=== PATIENT | female | born 1955 | race African-American/Black ===

== ENCOUNTER 2019-02-01 02:44 | Emergency (ER) | payer OTHER ==
[~2019-02-01] VITALS: Ht 162.6 cm; Wt 46.0 kg
[2019-02-01] MEDS ORDERED: METHYLPREDNISOLONE SOD SUCC 125 MG/2 ML VIAL IV STA (05:20)
[2019-02-01] MEDS ORDERED: IPRATROPIUM BROMIDE (0.02%) 0.5MG/2.5ML NEB HHN STA (05:20)
[2019-02-01] MEDS ORDERED: ALBUTEROL (0.083%) 2.5MG/3ML NEB HHN STA (05:20)
[2019-02-01 07:48] VITALS: BP 134/72
== END 2019-02-01 08:02 | disposition home or self-care (01) ==
LOC: ER 02:44
DX: J44.1 Chronic obstructive pulmonary disease with (acute) exacerbation (principal); I10 Essential (primary) hypertension
CPT/HCPCS: 93005; 96374; 99283; J2930; J7611; Z7610

== ENCOUNTER 2024-12-06 12:28 | Inpatient (IN) | payer MEDICARE, MEDICAID ==
[2024-12-06] VITALS (42 sets, daily range): BP systolic 100–178; BP diastolic 81–134; PULSE 75–110; RESP 14–30; TEMP 36.2–36.5; O2SAT 98–100
[~2024-12-06] VITALS: Ht 172.7 cm; Wt 51.7 kg
[~2024-12-06 12:28] MED LIST: ALBU6.7H15 INH; AMLO5TAB5 MT; MOME13HF11 INH
[2024-12-06] MEDS: ALBUTEROL (0.083%) 2.5MG/3ML NEB HHN STA (12:45)
[2024-12-06] MEDS: IPRATROPIUM BROMIDE (0.02%) 0.5MG/2.5ML NEB HHN STA (12:46)
[2024-12-06 13:00] LABS: BG BASE EXCESS 0.5 mmol/L (-2.0-3.0); BG CARBOXYHEMOGLOBIN 2.6 % (0.5-1.5); BG DEOXYHEMOGLOBIN 0.3 % (0.0-5.0); BG FRACTION INSPIRED OXYGEN 100; BG HCO3 ACT 21.2 mmol/L (21.0-28.0); BG METHEMOGLOBIN 0.3 % (0.5-1.5); BG OXYGEN SATURATION 99.7 % (94.0-98.0); BG OXYHEMOGLOBIN 96.8 % (94.0-98.0); BG PCO2 24.3 mmHg (32.0-45.0); BG PH 7.559 (7.350-7.450); BG PO2 516.7 mmHg (83.0-108.0); BG SAMPLE SITE RIGHT RADIAL; BG TOTAL HEMOGLOBIN 13.3 g/dL (12.0-16.0); BG TOTAL RESPIRATORY RATE 30 b/min; BG VENT MODE MASK - BIPAP
[2024-12-06 13:12] LABS: EOSINOPHILS % 1.6 % (0.0-5.0); HEMATOCRIT. 38.3 % (36.0-48.0); HEMOGLOBIN. 12.5 g/dL (12.0-16.0); LYMPHOCYTES % 28.9 % (20.0-50.0); MEAN CORPUSCULAR HEMOGLOBIN 30.2 pg (28.0-32.0); MEAN CORPUSCULAR HGB CONC 32.8 g/dL (31.0-37.0); MEAN CORPUSCULAR VOLUME 92.2 fL (81.0-99.0); MONOCYTES % 5.3 % (2.0-8.0); NEUTROPHILS % 63.2 % (40.0-76.0); PLATELET 322 x1000/uL (130-400); RED BLOOD CELL COUNT 4.15 mill/uL (4.2-5.4); RED CELL DISTRIBUTION WIDTH 14.3 % (11.6-14.6); WHITE BLOOD COUNT 11.1 x1000/uL (4.5-11.0)
[2024-12-06] MEDS: METHYLPREDNISOLONE SOD SUCC 125MG/2ML (ACT-O-VIAL) IV STA (13:24)
[2024-12-06 13:26] LABS: CHLORIDE 105 mEq/L (98-107); SODIUM 142 mEq/L (136-145)
[2024-12-06 13:27] LABS: CALCIUM 9.3 mg/dL (8.7-10.4); CARBON DIOXIDE 28 mEq/L (21-32)
[2024-12-06] MEDS: FENTANYL CITRATE/PF 50MCG/ML 2ML VIAL IV ONE (13:30)
[2024-12-06 13:32] LABS: CREATININE 0.9 mg/dL (0.6-1.0); GLUCOSE 129 mg/dL (70-105); UREA NITROGEN BLOOD 20 mg/dL (9-23)
[2024-12-06 13:33] LABS: LACTIC ACID 2.3 mmol/L (0.4-2.0)
[2024-12-06 13:34] LABS: TROPONIN I HIGH SENSITIVITY 4 ng/L (3.0-34)
[2024-12-06] MEDS: ETOMIDATE 2MG/ML 10ML VIAL IV ONE (13:43)
[2024-12-06] MEDS: ROCURONIUM BROMIDE 10MG/ML VIAL 5ML IV ONE (13:47)
[2024-12-06] MEDS: PROPOFOL 10MG/ML 100ML 100 ML IV ONE (13:48)
[2024-12-06 14:48] LABS: *AMPHETAMINES SCREEN URINE NEGATIVE (NEGATIVE)
[2024-12-06 14:49] LABS: *BARBITURATES SCREEN URINE NEGATIVE (NEGATIVE); *BENZODIAZEPINES SCREEN URINE NEGATIVE (NEGATIVE); *COCAINE SCREEN URINE PRESUMPTIVE POSITIVE (NEGATIVE); CANNABINOID URINE SCREEN NEGATIVE (NEGATIVE); ECSTASY MDMA SCREEN URINE NEGATIVE (NEGATIVE); METHADONE URINE SCREEN NEGATIVE (NEGATIVE); OPIATES URINE SCREEN NEGATIVE (NEGATIVE); PHENCYCLIDINE URINE SCREEN NEGATIVE (NEGATIVE)
[2024-12-06] MEDS ORDERED: ATROPINE SULFATE 1MG/10ML SYR ONE (14:51)
[2024-12-06] MEDS ORDERED: MIDAZOLAM HCL 2 MG/2 ML VIAL ONE ×4 (14:54→15:50)
[2024-12-06] MEDS ORDERED: FENTANYL CITRATE/PF 50MCG/ML 2ML VIAL ONE (14:56)
[2024-12-06] MEDS ORDERED: IODIXANOL 320MG/ML 100 ML BOTTLE IV ONE (15:02)
[2024-12-06] MEDS ORDERED: DOPAMINE 400MG/250ML PREMIX 250 ML IV ONE (15:20)
[2024-12-06] MEDS ORDERED: HEPARIN 1000 UNITS/ML 10ML ONE (15:27)
[2024-12-06] MEDS ORDERED: CLOPIDOGREL 75MG TABLET ONE (15:28)
[2024-12-06] MEDS ORDERED: ATROPINE SULFATE 1MG/10ML SYR IV PRN (16:20)
[2024-12-06] MEDS ORDERED: ONDANSETRON HCL 4MG/2ML INJ IV PRN (17:30)
[2024-12-06] MEDS ORDERED: HYDROMORPHONE HCL/PF 2MG/ML INJ IV PRN (17:30)
[2024-12-06 17:40] LABS: BG BASE EXCESS 0.3 mmol/L (-2.0-3.0); BG CARBOXYHEMOGLOBIN 0.2 % (0.5-1.5); BG DEOXYHEMOGLOBIN 0.4 % (0.0-5.0); BG FRACTION INSPIRED OXYGEN 50; BG HCO3 ACT 24.5 mmol/L (21.0-28.0); BG METHEMOGLOBIN 0.3 % (0.5-1.5); BG OXYGEN SATURATION 99.6 % (94.0-98.0); BG OXYHEMOGLOBIN 99.1 % (94.0-98.0); BG PCO2 38.3 mmHg (32.0-45.0); BG PH 7.424 (7.350-7.450); BG PO2 237.3 mmHg (83.0-108.0); BG SAMPLE SITE LEFT RADIAL; BG TOTAL HEMOGLOBIN 13.6 g/dL (12.0-16.0); BG VENT MODE VENT - AC
[2024-12-06] MEDS: DEXT 5%/0.45% NACL 1000ML 1,000 ML IV SCH (18:55)
[2024-12-06] MEDS: PROPOFOL 10MG/ML 100ML 100 ML IV PRN (19:20)
[2024-12-06] MEDS: BUDESONIDE 0.5MG/2ML NEB HHN SCH (20:01)
[2024-12-06] MEDS: ATORVASTATIN CALCIUM 40MG TABLET NG SCH (21:35)
[2024-12-06] MEDS: FAMOTIDINE 20MG/2ML VIAL IV SCH (21:35)
[2024-12-06] MEDS: CARVEDILOL 12.5MG TABLET PO SCH (21:36)
[2024-12-06] MEDS: LORAZEPAM 2MG/ML INJ IV PRN (22:07)
[2024-12-07] VITALS (64 sets, daily range): BP systolic 102–188; BP diastolic 67–135; PULSE 69–103; RESP 11–35; TEMP 35.2–36.9; O2SAT 93–100
[2024-12-07 00:04] LABS: TROPONIN I HIGH SENSITIVITY 18380 ng/L (3.0-34)
[2024-12-07 06:37] LABS: CHLORIDE 103 mEq/L (98-107); POTASSIUM 4.2 mEq/L (3.5-5.1); SODIUM 138 mEq/L (136-145)
[2024-12-07 06:41] LABS: CARBON DIOXIDE 25 mEq/L (21-32)
[2024-12-07 06:42] LABS: CALCIUM 8.9 mg/dL (8.7-10.4)
[2024-12-07 06:46] LABS: CREATININE 0.6 mg/dL (0.6-1.0)
[2024-12-07 06:47] LABS: ALANINE AMINOTRANSFERASE 34 IU/L (10-49); LDL CHOLESTEROL 60 mg/dL (5-100); TRIGLYCERIDE 91 mg/dL (0-150); UREA NITROGEN BLOOD 16 mg/dL (9-23)
[2024-12-07 06:48] LABS: ALBUMIN 3.6 g/dL (3.2-4.8); ASPARTATE AMINOTRANSFERASE 161 IU/L (<34)
[2024-12-07 06:49] LABS: BASOPHILS % 0.2 % (0.0-2.0); BILIRUBIN TOTAL 0.7 mg/dL (0.1-1.0); CHOLESTEROL 172 mg/dL (<200); EOSINOPHILS % 0.1 % (0.0-5.0); HDL CHOLESTEROL 83 mg/dL (>65); HEMOGLOBIN. 12.2 g/dL (12.0-16.0); LYMPHOCYTES % 16.5 % (20.0-50.0); MEAN CORPUSCULAR HEMOGLOBIN 30.7 pg (28.0-32.0); MEAN CORPUSCULAR HGB CONC 32.9 g/dL (31.0-37.0); MEAN CORPUSCULAR VOLUME 93.1 fL (81.0-99.0); MONOCYTES % 5.5 % (2.0-8.0); NEUTROPHILS % 77.7 % (40.0-76.0); PLATELET 285 x1000/uL (130-400); PROTEIN TOTAL 6.3 g/dL (6.0-8.3); RED BLOOD CELL COUNT 3.97 mill/uL (4.2-5.4); RED CELL DISTRIBUTION WIDTH 14.1 % (11.6-14.6); WHITE BLOOD COUNT 9.2 x1000/uL (4.5-11.0)
[2024-12-07 08:18] LABS: GLUCOSE 138 mg/dL (70-105)
[2024-12-07] MEDS: IPRATROPIUM/ALBUTEROL 0.5-3(2.5)MG/3ML NEB HHN PRN (08:27)
[2024-12-07 08:44] LABS: BG BASE EXCESS -1.6 mmol/L (-2.0-3.0); BG CARBOXYHEMOGLOBIN 0.6 % (0.5-1.5); BG DEOXYHEMOGLOBIN 0.9 % (0.0-5.0); BG FRACTION INSPIRED OXYGEN 40; BG METHEMOGLOBIN 0.3 % (0.5-1.5); BG OXYGEN SATURATION 99.1 % (94.0-98.0); BG OXYHEMOGLOBIN 98.2 % (94.0-98.0); BG PCO2 33.3 mmHg (32.0-45.0); BG PH 7.437 (7.350-7.450); BG PO2 147.2 mmHg (83.0-108.0); BG SAMPLE SITE Other; BG TOTAL HEMOGLOBIN 12.7 g/dL (12.0-16.0); BG VENT MODE VENT - AC
[2024-12-07] MEDS: CLOPIDOGREL 75MG TABLET PO SCH (08:45)
[2024-12-07] MEDS: ENOXAPARIN 40MG/0.4ML SYR SUBCUT SCH (08:45)
[2024-12-07] MEDS ORDERED: HYDRALAZINE 20MG/ML VIAL IV PRN (10:00)
[2024-12-07 10:10] LABS: BG CARBOXYHEMOGLOBIN 0.3 % (0.5-1.5); BG DEOXYHEMOGLOBIN 2.7 % (0.0-5.0); BG FRACTION INSPIRED OXYGEN 30; BG HCO3 ACT 22.5 mmol/L (21.0-28.0); BG METHEMOGLOBIN 0.3 % (0.5-1.5); BG OXYGEN SATURATION 97.3 % (94.0-98.0); BG OXYHEMOGLOBIN 96.7 % (94.0-98.0); BG PH 7.391 (7.350-7.450); BG PO2 95.2 mmHg (83.0-108.0); BG SAMPLE SITE Other; BG TOTAL HEMOGLOBIN 13.3 g/dL (12.0-16.0); BG VENT MODE VENT - CPAP
[2024-12-07] MEDS: ASPIRIN 81MG TABLET PO SCH (10:59)
[2024-12-07 14:32] LABS: TROPONIN I HIGH SENSITIVITY 22683 ng/L (3.0-34)
[2024-12-08] VITALS (32 sets, daily range): BP systolic 84–138; BP diastolic 60–98; PULSE 65–97; RESP 12–27; TEMP 36.2–36.9; O2SAT 62–100
[2024-12-08] MEDS ORDERED: NALOXONE HCL 0.4MG/ML VIAL IV PRN (15:00)
[2024-12-08] MEDS: ACETAMINOPHEN 325MG TABLET PO PRN (21:36)
[2024-12-09] VITALS: BP 129/89; PULSE 85; RESP 19; TEMP 36.6; O2SAT 100
[2024-12-09 04:00] VITALS: BP 103/65; PULSE 85; RESP 18; TEMP 36.5; O2SAT 98
[2024-12-09] MEDS: ACETAMINOPHEN 325MG TABLET PO PRN (06:22)
[2024-12-09 08:02] VITALS: PULSE 71; RESP 15
[2024-12-09 12:00] VITALS: BP 121/82; PULSE 75; RESP 18; TEMP 36.1; O2SAT 100
[2024-12-09] MEDS ORDERED: LOSA25TA26 MT (13:16)
[2024-12-09] MEDS ORDERED: LIP40 MT (13:16)
[2024-12-09] MEDS ORDERED: COR12 PO (13:16)
[2024-12-09] MEDS ORDERED: ASPI-1160 PO (13:16)
[2024-12-09] MEDS ORDERED: CLOP-31 PO (13:16)
[2024-12-09 16:05] VITALS: BP 109/68; PULSE 87; RESP 18; TEMP 36.1; O2SAT 98
[2024-12-09 17:50] VITALS: BP 109/68; PULSE 87; TEMP 97
== END 2024-12-09 18:34 | disposition home or self-care (01) | DRG 321 ==
LOC: ER 12:28 → CVICU 13:59 → EDBEDREQ 14:13 → 6WST 12-08 14:49
PROVIDERS: ADMIT Internal Medicine Pulmonary Disease; ATTEND Internal Medicine Pulmonary Disease
PROC: 027135Z Dilation of Coronary Artery, Two Arteries with Two Drug-eluting Intraluminal Devices, Percutaneous Approach (ICD-10-PCS; principal; 2024-12-06)
PROC: 4A023N7 Measurement of Cardiac Sampling and Pressure, Left Heart, Percutaneous Approach (ICD-10-PCS; 2024-12-06)
PROC: B211YZZ Fluoroscopy of Multiple Coronary Arteries using Other Contrast (ICD-10-PCS; 2024-12-06)
PROC: 5A09357 Assistance with Respiratory Ventilation, Less than 24 Consecutive Hours, Continuous Positive Airway Pressure (ICD-10-PCS; 2024-12-06)
PROC: 5A1945Z Respiratory Ventilation, 24-96 Consecutive Hours (ICD-10-PCS; 2024-12-06)
PROC: 0BH17EZ Insertion of Endotracheal Airway into Trachea, Via Natural or Artificial Opening (ICD-10-PCS; 2024-12-06)
DX: I21.19 ST elevation (STEMI) myocardial infarction involving other coronary artery of inferior wall (principal); I50.21 Acute systolic (congestive) heart failure; J96.01 Acute respiratory failure with hypoxia; J44.1 Chronic obstructive pulmonary disease with (acute) exacerbation; Z59.00 Homelessness unspecified; F14.10 Cocaine abuse, uncomplicated; I11.0 Hypertensive heart disease with heart failure; F17.200 Nicotine dependence, unspecified, uncomplicated; I25.10 Atherosclerotic heart disease of native coronary artery without angina pectoris; I21.29 ST elevation (STEMI) myocardial infarction involving other sites; Z88.2 Allergy status to sulfonamides; Z79.82 Long term (current) use of aspirin; Z79.02 Long term (current) use of antithrombotics/antiplatelets
CPT/HCPCS: 36415; 36600; 71045; 80048; 80053; 80061; 80305; 82375; 82805; 83036; 83605; 83880; 84443; 84484; 85025; 85347; 85379; 87070; 92928; 92929; 93005; 93306; 93458; 94002; 94003; 94070; 94640; 94660; 94760; 97162; 97166; 99291; A4606; C1725; C1769; C1874; C1887; C1893; J0461; J1265; J1644; J1650; J2060; J2250; J2704; J2919; J3010; J3490; J7626; Q9967

== ENCOUNTER 2025-08-04 02:32 | Inpatient (IN) | payer MEDICARE, MEDICAID ==
[2025-08-04] VITALS (7 sets, daily range): BP systolic 141–160; BP diastolic 87–104; PULSE 76–100; RESP 16–24; TEMP 35.8–36.7; O2SAT 96–99
[~2025-08-04] VITALS: Ht 162.6 cm; Wt 54.1 kg
[~2025-08-04 02:32] MED LIST changes: -AMLO5TAB5 MT; +ASPI-1160 PO; +CLOP-31 PO; +COR12 PO; +LIP40 MT; +LOSA25TA26 MT
[2025-08-04 05:09] LABS: BASOPHILS % 1.1 % (0.0-2.0); EOSINOPHILS % 5.4 % (0.0-5.0); HEMATOCRIT. 37.6 % (36.0-48.0); HEMOGLOBIN. 12.5 g/dL (12.0-16.0); LYMPHOCYTES % 32.5 % (20.0-50.0); MEAN PLATELET VOLUME 8.6 fl (7.4-10.4); MONOCYTES % 8.8 % (2.0-8.0); NEUTROPHILS % 52.2 % (40.0-76.0); PLATELET 248 x1000/uL (130-400); RED BLOOD CELL COUNT 4.09 mill/uL (4.2-5.4); RED CELL DISTRIBUTION WIDTH 13.6 % (11.6-14.6)
[2025-08-04] MEDS: METHYLPREDNISOLONE SOD SUCC 125MG/2ML (ACT-O-VIAL) IV NR (05:14)
[2025-08-04 05:20] LABS: CREATININE 0.8 mg/dL (0.6-1.0)
[2025-08-04 05:21] LABS: UREA NITROGEN BLOOD 18 mg/dL (9-23)
[2025-08-04 05:22] LABS: ASPARTATE AMINOTRANSFERASE 26 IU/L (<34); TROPONIN I HIGH SENSITIVITY 30 ng/L (3.0-34)
[2025-08-04 05:23] LABS: BILIRUBIN DIRECT 0.1 mg/dL (<=3.0); BILIRUBIN TOTAL 0.3 mg/dL (0.1-1.0); INR 0.9; PROTEIN TOTAL 6.3 g/dL (6.0-8.3)
[2025-08-04 05:24] LABS: *AMPHETAMINES SCREEN URINE NEGATIVE (NEGATIVE); *BARBITURATES SCREEN URINE NEGATIVE (NEGATIVE); *BENZODIAZEPINES SCREEN URINE NEGATIVE (NEGATIVE); *COCAINE SCREEN URINE PRESUMPTIVE POSITIVE (NEGATIVE); METHADONE URINE SCREEN NEGATIVE (NEGATIVE); OPIATES URINE SCREEN NEGATIVE (NEGATIVE)
[2025-08-04 05:25] LABS: CANNABINOID URINE SCREEN NEGATIVE (NEGATIVE); ECSTASY MDMA SCREEN URINE NEGATIVE (NEGATIVE); PHENCYCLIDINE URINE SCREEN NEGATIVE (NEGATIVE)
[2025-08-04 05:43] LABS: BG BASE EXCESS 0.6 mmol/L (-2.0-3.0); BG CARBOXYHEMOGLOBIN 0.3 % (0.5-1.5); BG DEOXYHEMOGLOBIN 7.5 % (0.0-5.0); BG HCO3 ACT 25.3 mmol/L (21.0-28.0); BG METHEMOGLOBIN 0.2 % (0.5-1.5); BG OXYGEN SATURATION 92.5 % (94.0-98.0); BG OXYHEMOGLOBIN 92.0 % (94.0-98.0); BG PCO2 40.9 mmHg (32.0-45.0); BG PH 7.409 (7.350-7.450); BG PO2 66.1 mmHg (83.0-108.0); BG SAMPLE SITE LEFT RADIAL; BG TOTAL HEMOGLOBIN 13.0 g/dL (12.0-16.0); BG VENT MODE ROOM AIR
[2025-08-04] MEDS: ALBUTEROL (0.083%) 2.5MG/3ML NEB HHN NR (05:47)
[2025-08-04] MEDS: IPRATROPIUM BROMIDE (0.02%) 0.5MG/2.5ML NEB HHN NR (05:47)
[2025-08-04] MEDS ORDERED: IPRATROPIUM/ALBUTEROL 0.5-3(2.5)MG/3ML NEB NEB SCH (08:00)
[2025-08-04] MEDS ORDERED: HYDROCODONE/ACETAMINOPHEN 5/325MG TABLET PO PRN (08:00)
[2025-08-04] MEDS ORDERED: MAGNESIUM/ALUMINUM HYDROXIDE/SIMETHICONE 30ML UDC PO PRN (08:00)
[2025-08-04] MEDS ORDERED: MORPHINE SULFATE 2 MG/ML INJ (NOT FOR IM USE) IV PRN (08:00)
[2025-08-04] MEDS ORDERED: ONDANSETRON HCL 4MG/2ML INJ IV PRN (08:00)
[2025-08-04 08:29] LABS: INFLUENZA TYPE A Presumptive Negative (Pres. Neg.)
[2025-08-04 08:30] LABS: INFLUENZA TYPE B Presumptive Negative (Pres. Neg.); RESPIRATORY SYNCYTIAL VIRUS Not Detected (Not Detectd)
[2025-08-04] MEDS ORDERED: NALOXONE HCL 0.4MG/ML VIAL IV PRN (09:00)
[2025-08-04] MEDS ORDERED: TRAMADOL 50MG TABLET PO PRN (09:00)
[2025-08-04] MEDS: ENOXAPARIN 40MG/0.4ML SYR SUBCUT SCH (09:05)
[2025-08-04] MEDS: PANTOPRAZOLE SODIUM 40 MG/VIAL IV SCH (09:05)
[2025-08-04] MEDS: METHYLPREDNISOLONE SOD SUCC 40MG/ML (ACT-O-VIAL) IV SCH (09:11)
[2025-08-04] MEDS: IPRATROPIUM/ALBUTEROL 0.5-3(2.5)MG/3ML NEB HHN SCH (15:16)
[2025-08-04] MEDS: CLONIDINE 0.1MG TABLET PO PRN (17:35)
[2025-08-05] VITALS (12 sets, daily range): BP systolic 123–140; BP diastolic 40–90; PULSE 62–112; RESP 16–22; TEMP 35.9–37.7; O2SAT 80–98
[2025-08-05] MEDS: HYDRALAZINE HCL 25MG TABLET PO SCH (00:24)
[2025-08-05] MEDS: ZOLPIDEM TARTRATE 5MG TABLET PO PRN (00:24)
[2025-08-05] MEDS: FUROSEMIDE 20MG/2ML VIAL IVP SCH (00:24)
[2025-08-05 01:49] LABS: TROPONIN I HIGH SENSITIVITY 14 ng/L (3.0-34)
[2025-08-05 03:36] LABS: HEPATITIS C AB NON REACTIVE (Neg) (Negative)
[2025-08-05 08:24] LABS: BASOPHILS % 0.2 % (0.0-2.0); EOSINOPHILS % 0.0 % (0.0-5.0); HEMATOCRIT. 39.1 % (36.0-48.0); HEMOGLOBIN. 13.1 g/dL (12.0-16.0); LYMPHOCYTES % 13.6 % (20.0-50.0); MEAN PLATELET VOLUME 8.7 fl (7.4-10.4); MONOCYTES % 3.7 % (2.0-8.0); NEUTROPHILS % 82.5 % (40.0-76.0); PLATELET 278 x1000/uL (130-400); RED BLOOD CELL COUNT 4.22 mill/uL (4.2-5.4); RED CELL DISTRIBUTION WIDTH 14.1 % (11.6-14.6)
[2025-08-05 08:30] LABS: CREATININE 1.0 mg/dL (0.6-1.0); UREA NITROGEN BLOOD 18 mg/dL (9-23)
[2025-08-05] MEDS: ACETAMINOPHEN 325MG TABLET PO PRN (08:57)
[2025-08-06] VITALS (10 sets, daily range): BP systolic 135–144; BP diastolic 81–102; PULSE 69–116; RESP 14–22; TEMP 36.4–37.5; O2SAT 95–98
[2025-08-06 06:04] LABS: BASOPHILS % 0.3 % (0.0-2.0); EOSINOPHILS % 0.1 % (0.0-5.0); HEMATOCRIT. 36.5 % (36.0-48.0); HEMOGLOBIN. 12.4 g/dL (12.0-16.0); LYMPHOCYTES % 11.5 % (20.0-50.0); MEAN PLATELET VOLUME 8.0 fl (7.4-10.4); MONOCYTES % 2.7 % (2.0-8.0); NEUTROPHILS % 85.4 % (40.0-76.0); PLATELET 277 x1000/uL (130-400); RED BLOOD CELL COUNT 3.93 mill/uL (4.2-5.4); RED CELL DISTRIBUTION WIDTH 13.8 % (11.6-14.6)
[2025-08-06 06:17] LABS: CREATININE 1.0 mg/dL (0.6-1.0)
[2025-08-06 06:18] LABS: UREA NITROGEN BLOOD 21 mg/dL (9-23)
[2025-08-06] MEDS ORDERED: P20 MT (14:39)
[2025-08-06] MEDS ORDERED: ALBU90AE INH (14:39)
[2025-08-06] MEDS ORDERED: FLUT1AER INH (14:39)
[2025-08-07] VITALS (9 sets, daily range): BP systolic 110–172; BP diastolic 71–109; PULSE 87–106; RESP 12–19; TEMP 36.5–37.5; O2SAT 94–99
[2025-08-07 07:52] LABS: BASOPHILS % 0.3 % (0.0-2.0); EOSINOPHILS % 0.2 % (0.0-5.0); HEMATOCRIT. 38.5 % (36.0-48.0); HEMOGLOBIN. 12.6 g/dL (12.0-16.0); LYMPHOCYTES % 14.6 % (20.0-50.0); MEAN PLATELET VOLUME 8.5 fl (7.4-10.4); MONOCYTES % 2.6 % (2.0-8.0); NEUTROPHILS % 82.3 % (40.0-76.0); PLATELET 314 x1000/uL (130-400); RED BLOOD CELL COUNT 4.13 mill/uL (4.2-5.4); RED CELL DISTRIBUTION WIDTH 13.7 % (11.6-14.6)
[2025-08-07 07:54] LABS: CREATININE 1.0 mg/dL (0.6-1.0)
[2025-08-07 07:55] LABS: UREA NITROGEN BLOOD 25 mg/dL (9-23)
[2025-08-08] VITALS (12 sets, daily range): BP systolic 111–151; BP diastolic 80–102; PULSE 68–96; RESP 16–20; TEMP 36.3–36.8; O2SAT 94–100
[2025-08-09] VITALS (7 sets, daily range): BP systolic 116–140; BP diastolic 82–101; PULSE 85–102; RESP 17–19; TEMP 35.7–36.6; O2SAT 96–99
== END 2025-08-09 13:05 | disposition home or self-care (01) | DRG 189 ==
LOC: ER 02:32 → 6WST 05:37 → EDBEDREQ 05:41 → EDBEDREQTM 05:41 → ENRESERV 06:27
PROVIDERS: ADMIT Internal Medicine; ATTEND Internal Medicine
DX: J96.21 Acute and chronic respiratory failure with hypoxia (principal); Z59.00 Homelessness unspecified; J44.1 Chronic obstructive pulmonary disease with (acute) exacerbation; Z79.02 Long term (current) use of antithrombotics/antiplatelets; I10 Essential (primary) hypertension; F14.10 Cocaine abuse, uncomplicated; Z20.822 Contact with and (suspected) exposure to COVID-19; F19.10 Other psychoactive substance abuse, uncomplicated; J98.4 Other disorders of lung; F17.210 Nicotine dependence, cigarettes, uncomplicated; Z79.51 Long term (current) use of inhaled steroids; Z79.899 Other long term (current) drug therapy; Z88.2 Allergy status to sulfonamides
CPT/HCPCS: 36415; 36600; 71045; 80048; 80076; 80305; 80320; 82375; 82805; 83880; 84443; 84484; 85025; 85379; 86705; 87340; 87420; 87426; 87804; 93005; 93970; 94070; 94640; 94664; 99285; J1650; J1938; J2470; J2919; G0480